=== PATIENT | male | born 1950 | race Caucasian/White ===

== ENCOUNTER 2023-12-13 08:49 | Outpatient (CLI) | payer MEDICARE | END 2023-12-13 23:59 | disposition home or self-care (01) | LOC: CT 08:49 | PROVIDERS: ATTEND Surgery | DX: S81.002A Unspecified open wound, left knee, initial encounter (principal); M17.12 Unilateral primary osteoarthritis, left knee; M25.862 Other specified joint disorders, left knee; M11.262 Other chondrocalcinosis, left knee; Z89.522 Acquired absence of left knee; M25.762 Osteophyte, left knee; X58.XXXA Exposure to other specified factors, initial encounter; Y93.89 Activity, other specified; Y92.89 Other specified places as the place of occurrence of the external cause; Y99.8 Other external cause status | CPT/HCPCS: 73700-TC ==